=== PATIENT | male | born 1985 | race Caucasian/White ===

== ENCOUNTER 2020-01-05 21:58 | Emergency (ER) | payer BC ==
[2020-01-05] MEDS ORDERED: predniSONE 20 MG TAB ONE (22:19)
[2020-01-05] MEDS ORDERED: diphenhydrAMINE 25 MG CAP ONE (22:19)
[2020-01-05] MEDS ORDERED: Famotidine 20 MG TAB ONE (22:19)
== END 2020-01-05 23:58 | disposition home or self-care (01) ==
LOC: ERS 21:58
DX: T78.40XA Allergy, unspecified, initial encounter (principal); E78.5 Hyperlipidemia, unspecified; E78.00 Pure hypercholesterolemia, unspecified; I10 Essential (primary) hypertension; J45.909 Unspecified asthma, uncomplicated; F31.9 Bipolar disorder, unspecified; F41.9 Anxiety disorder, unspecified; Z87.891 Personal history of nicotine dependence; Z79.899 Other long term (current) drug therapy
CPT/HCPCS: 99283; J7512; Q0163

== ENCOUNTER 2023-05-15 14:17 | Emergency (ER) | payer BC ==
[2023-05-15] MEDS ORDERED: Famotidine 20 MG TAB ONE (14:49)
[2023-05-15] MEDS ORDERED: predniSONE 20 MG TAB ONE (14:49)
[2023-05-15] MEDS ORDERED: diphenhydrAMINE 25 MG CAP ONE (14:49)
[2023-05-15] MEDS ORDERED: EPINEPHrine 1 MG/ML AMP ONE (15:00)
== END 2023-05-15 17:25 | disposition home or self-care (01) ==
LOC: ERS 14:17
DX: T78.2XXA Anaphylactic shock, unspecified, initial encounter (principal); E78.5 Hyperlipidemia, unspecified; I10 Essential (primary) hypertension; Z87.891 Personal history of nicotine dependence
CPT/HCPCS: 96372; 99284; J0171; J7512